=== PATIENT | female | born 1960 | race Caucasian/White ===

== ENCOUNTER → 2016-11-12 | Day surgery (SDC) | payer OTHER ==
[~2016-11-12] MED LIST: FLUTI220I INH; IMMUNE PO; PROPOFOL 500 MG/50 ML BTL IV ONE
--- NOTE | 2016-11-12 14:28 | GIPROC ---
[facility] [address] [facility], [address] EGD PROCEDURE REPORT EXAM DATE: 11/12/2016 PATIENT NAME: Janell Holbrook MR #: [id number] BIRTHDATE: 1960 ATTENDING: Federico Pagan MD ORDER #: [id number] HEALTHCARE FINANCIAL ANALYST: Kari Shay EXTRACTOR TENDER RAW STOCK STATUS: outpatient INDICATIONS: The patient is a 56 yr old female here for an EGD due to epigastric abdominal pain PROCEDURE PERFORMED: EGD w/ biopsy MEDICATIONS: None and Per Anesthesia. TOPICAL ANESTHETIC: CONSENT: The patient understands the risks and benefits of the procedure and understands that these risks include, but are not limited to: sedation, allergic reaction, infection, perforation and/or bleeding. Alternative means of evaluation and treatment include, among others: physical exam, x-rays, and/or surgical intervention. The patient elects to proceed with this endoscopic procedure. medical equipment was checked for proper function. Hand hygiene and appropriate measures for infection prevention was taken. After the risks, benefits and alternatives of the procedure were thoroughly explained, Informed consent was verified, confirmed and timeout was successfully executed by the treatment team. The patient was anesthetized with topical anesthesia and the EC-3890Li ([id number]) endoscope was introduced through the mouth and advanced to the second portion of the duodenum. Retroflexed views revealed no abnormalities The gastroscope was then slowly withdrawn and removed. ESOPHAGUS: There was [place] Class A esophagitis noted. A biopsy was performed using cold forceps. Sample sent for histology. STOMACH: A single non-bleeding and shallow ulcer ranging between 3-5 mm in size with a pigmented spot was found in the gastric antrum and on the posterior wall of the stomach. Biopsies were taken at edge of the ulcer. DUODENUM: The duodenal mucosa appeared normal in the bulb and second portion of the duodenum. ADVERSE EVENTS: There were no complications. IMPRESSIONS: 1. There was LA Class A esophagitis noted; biopsy was performed 2. Single ulcer ranging between 3-5 mm in size was found in the gastric antrum and on the posterior wall of the stomach; biopsies were taken 3. Normal duodenal mucosa in the bulb and second portion of the duodenum 4. Retroflexed views revealed no abnormalities RECOMMENDATIONS: 1. Await biopsy results. Biopsy results will not be ready for 7-10 days. If you don't hear from us in two weeks, call our office for biopsy results. 2. Anti-reflux regimen 3. Continue PPI 4. Avoid NSAIDS PATIENT CONDITION: stable DISPOSITION: Home REPEAT EXAM: Return 3 months EGD pending biopsy results Federico Pagan MD eSigned: Federico Pagan MD 11/12/2016 2:27 PM cc: Kyleigh Baxter [facility] Deidra Browning M.D. PATIENT NAME: Janell Holbrook MR#: [id number]
--- NOTE | 2016-11-12 14:41 | GIPROC ---
[facility] [address] [facility], [address] COLONOSCOPY PROCEDURE REPORT EXAM DATE: 11/12/2016 PATIENT NAME: Janell Holbrook MR #: [id number] BIRTHDATE: 1960 ENDOSCOPIST: Federico Pagan MD ORDER #: [id number] JAIL OFFICER: Kari Shay SCHEDULING ANALYST STATUS: outpatient INDICATIONS: The patient is a 56 yr old female here for a colonoscopy due to change in bowel habits and high risk patient with personal history of colonic polyps PROCEDURE PERFORMED: Colonoscopy, diagnostic MEDICATIONS: None and Per Anesthesia. PREP QUALITY: The [place] Bowel Prep Score was Right colon 1, Mid colon 2, and Left colon 1. Total = 4. ESTIMATED BLOOD LOSS: None CONSENT: The patient understands the risks and benefits of the procedure and understands that these risks include, but are not limited to: sedation, allergic reaction, infection, perforation and/or bleeding. Alternative means of evaluation and treatment include, among others: physical exam, x-rays, and/or surgical intervention. The patient elects to proceed with this endoscopic procedure. medical equipment was checked for proper function. Hand hygiene and appropriate measures for infection prevention was taken. After the risks, benefits and alternatives of the procedure were thoroughly explained, Informed consent was verified, confirmed and timeout was successfully executed by the treatment team. A digital exam revealed external hemorrhoids The EC-3890Li ([id number]) endoscope was introduced through the anus and advanced to the cecum, which was identified by both the appendix and ileocecal valve. The instrument was then slowly withdrawn as the colon was fully examined. COLON FINDINGS: The colonic mucosa appeared normal. Retroflexed views revealed internal hemorrhoids and Retroflexed views revealed small internal hemorrhoids The scope was then completely withdrawn from the patient and the procedure terminated. PROCEDURE WITHDRAWAL TIME:6minutes ADVERSE EVENTS: There were no complications. IMPRESSIONS: 1. The colonic mucosa appeared normal 2. Retroflexed views revealed internal hemorrhoids 3. Retroflexed views revealed small internal hemorrhoids 4. Revealed external hemorrhoids RECOMMENDATIONS: 1. Benefiber 2 tsp daily 2. Continue surveillance 3. Yearly hemoccult 4. High fiber diet RECALL: Return 1 year Colonoscopy Federico Pagan MD eSigned: Federico Pagan MD 11/12/2016 2:40 PM cc: Kyleigh Baxter [facility] Deidra and Bettye Browning M.D. PATIENT NAME: Janell Holbrook MR#: [id number]
== END | disposition home or self-care (01) ==
LOC: ESDC 12:57
PROVIDERS: ATTEND Internal Medicine Gastroenterology
DX: R19.4 Change in bowel habit (principal); Z86.010 Personal history of colon polyps; K64.4 Residual hemorrhoidal skin tags; K64.8 Other hemorrhoids; R10.13 Epigastric pain; K20.9 Esophagitis, unspecified; K25.3 Acute gastric ulcer without hemorrhage or perforation
CPT/HCPCS: 00740; 00810; 43239; 45378; 88305; J3010; 88312